=== PATIENT | male | born 1965 | race Caucasian/White ===

== ENCOUNTER 2019-08-02 06:00 | Outpatient (RCR) | payer MEDICAID, SELFPAY | END 2019-08-28 00:01 | LOC: APT 06:00 | PROVIDERS: Family Provider Family Medicine; Visit Provider Licensed Practical Nurse | DX: M54.9 Dorsalgia, unspecified (principal); G89.29 Other chronic pain | CPT/HCPCS: 97110; 97161 ==

== ENCOUNTER 2019-08-29 06:00 | Outpatient (RCR) | payer MEDICAID, SELFPAY | END 2019-09-28 23:59 | disposition home or self-care (01) | LOC: SPT 06:00 | PROVIDERS: Family Provider Family Medicine; PCP Family Medicine; Visit Provider Licensed Practical Nurse | DX: M54.9 Dorsalgia, unspecified (principal); G89.29 Other chronic pain ==

== ENCOUNTER → 2019-08-30 08:32 | Outpatient (BNVA) | payer MEDICAID, SELFPAY | PROVIDERS: Family Provider Family Medicine; PCP Family Medicine; Visit Provider Family Medicine | DX: K21.9 Gastro-esophageal reflux disease without esophagitis (principal); E11.9 Type 2 diabetes mellitus without complications; M54.5 Low back pain; G89.29 Other chronic pain; I48.11 Longstanding persistent atrial fibrillation; F41.9 Anxiety disorder, unspecified | CPT/HCPCS: 80048; 83036 ==

== ENCOUNTER → 2019-10-03 12:58 | Outpatient (BNVA) | payer MEDICAID, SELFPAY | PROVIDERS: Family Provider Family Medicine; PCP Family Medicine; Visit Provider Anesthesiology Pain Medicine | DX: G89.29 Other chronic pain (principal); M47.817 Spondylosis without myelopathy or radiculopathy, lumbosacral region; M99.83 Other biomechanical lesions of lumbar region; Z79.891 Long term (current) use of opiate analgesic | CPT/HCPCS: 99203; 99999 ==

== ENCOUNTER → 2020-06-04 11:24 | Outpatient (BNVA) | payer MEDICAID, SELFPAY | PROVIDERS: Family Provider Family Medicine; PCP Family Medicine; Visit Provider Nurse Practitioner | DX: S89.92XA Unspecified injury of left lower leg, initial encounter (principal); W19.XXXA Unspecified fall, initial encounter; M25.562 Pain in left knee; M79.662 Pain in left lower leg | CPT/HCPCS: 73562; 73590 ==

== ENCOUNTER → 2020-06-16 10:27 | Outpatient (BNVA) | payer MEDICAID, SELFPAY | PROVIDERS: Family Provider Family Medicine; PCP Family Medicine; Visit Provider Family Medicine | DX: M54.5 Low back pain (principal); E11.9 Type 2 diabetes mellitus without complications; S86.912D Strain of unspecified muscle(s) and tendon(s) at lower leg level, left leg, subsequent encounter; G89.29 Other chronic pain; E66.01 Morbid (severe) obesity due to excess calories; Z68.41 Body mass index [BMI] 40.0-44.9, adult; F17.211 Nicotine dependence, cigarettes, in remission | CPT/HCPCS: 36416; 82962 ==

== ENCOUNTER → 2020-10-20 14:17 | Outpatient (BNVA) | payer MEDICAID, SELFPAY | PROVIDERS: Family Provider Family Medicine; PCP Family Medicine; Visit Provider Family Medicine | DX: E11.9 Type 2 diabetes mellitus without complications (principal); M51.16 Intervertebral disc disorders with radiculopathy, lumbar region; F32.9 Major depressive disorder, single episode, unspecified; M99.83 Other biomechanical lesions of lumbar region; Z68.41 Body mass index [BMI] 40.0-44.9, adult; F17.211 Nicotine dependence, cigarettes, in remission | CPT/HCPCS: 80053; 83036; 85025 ==

== ENCOUNTER → 2020-10-29 11:33 | Outpatient (BNVA) | payer MEDICAID, SELFPAY | PROVIDERS: Family Provider Family Medicine; PCP Family Medicine; Visit Provider Family Medicine | DX: R89.9 Unspecified abnormal finding in specimens from other organs, systems and tissues (principal); E11.9 Type 2 diabetes mellitus without complications | CPT/HCPCS: 80053 ==

== ENCOUNTER → 2021-02-16 15:24 | Outpatient (BNVA) | payer MEDICAID, SELFPAY | PROVIDERS: Family Provider Family Medicine; PCP Family Medicine; Visit Provider Family Medicine | DX: M54.5 Low back pain (principal); E11.9 Type 2 diabetes mellitus without complications; I48.20 Chronic atrial fibrillation, unspecified; M51.16 Intervertebral disc disorders with radiculopathy, lumbar region; R07.9 Chest pain, unspecified | CPT/HCPCS: 80053; 83036; 85025 ==

== ENCOUNTER 2021-05-03 12:41 | Emergency (ER) | payer MEDICAID, SELFPAY ==
[2021-05-03] VITALS (33 sets, daily range): BP systolic 82–222; BP diastolic 48–114; PULSE 106–168; RESP 18–40; TEMP 36.9; O2SAT 92–100; BMI 47.5
--- NOTE | 2021-05-03 12:49 | XRR_ITS ---
PROCEDURE INFORMATION: Exam: XR Chest Exam date and time: 05/03/2021 12:49 PM Age: 55 years old Clinical indication: Shortness of breath; Additional info: Rule out infection TECHNIQUE: Imaging protocol: XR of the chest. Views: 1 view. COMPARISON: MRI Thoracic Spine w/o* [id number] 06/20/2019 2:23 PM FINDINGS: Lungs: Low lung volumes seen. Parenchymal densities with interstitial congestion left lower lobe possible pneumonia. The left upper lobe and right lung are clear . In No consolidation. Pleural spaces: Unremarkable. No pleural effusion. No pneumothorax. Heart/Mediastinum: Unremarkable. No cardiomegaly. Bones/joints: Unremarkable. XR/XR chest 1V portable [id number] IMPRESSION: 1. Left lower lobe pneumonia, and interstitial congestion 2. Low lung volumes 3. Low lung volumes
--- NOTE | 2021-05-03 12:49 | ECG_ITS ---
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1965 Requested By: Eileen Andrade Order Number: [id number] Reading MD: MARIO ROSENBERG Measurements Intervals [place] Rate: 130 P: MD: QRS: -67 QRSD: 93 T: 71 QT: 356 QTc: 525 Interpretive Statements ATRIAL FIBRILLATION WITH RAPID VENTRICULAR RESPONSE LEFT ANTERIOR FASCICULAR BLOCK [QRS AXIS <= -45, QR IN I, RS IN II] POSSIBLE ANTERIOR MYOCARDIAL INFARCTION , PROBABLY OLD [30 ms Q WAVE IN V3/V4, OR R < 0.2 mV IN V4] No previous ECG available for comparison Electronically Signed On 05-03-2021 15:02:17 CDT by MARIO ROSENBERG [id number]
--- NOTE | 2021-05-03 12:59 | ED_ITS ---
HPI - COVID General: Chief Complaint: COVID symptoms Stated Complaint: RESP DISTRESS Time Seen by Provider: 05/03/21 12:49 Triage information: Has fever, cough or shortness of breath . Exposure to COVID + person last 14 days COVID Results: No Data to Display [facility] ED PFSH: Medical History Chronic atrial fibrillation Chronic back pain Diabetes Morbid (severe) obesity due to excess calories Strain of knee and leg, left Family History Unknown Depression Diabetes Father Hypertension Heart disease Social History Smoking and tobacco status: former smoker Alcohol intake: current Alcohol intake frequency: holidays/special occasions only Alcohol type: wine Household members: spouse Marital status: Current occupational status: disabled History of recent travel: No Course Vital Signs: Vital signs: Vital Signs Temperature 98.4 F 05/03/21 12:47 Pulse Rate 168 H 05/03/21 12:47 Respiratory Rate 40 H 05/03/21 12:47 Blood Pressure 222/114 05/03/21 12:47 Pulse Oximetry 93 05/03/21 12:47 MDM - COVID Lab Data: Labs: Lab Results 05/03/21 Range/Units 12:55 Specimen Type Arterial Sample Site Heel, right ABG pH 7.55 H (7.35-7.45) ABG pCO2 27.0 L (35-45) mmHg ABG pO2 49.9 L (80.0-100.0) mmH g ABG HCO3 23.4 (22-26) mmol/L ABG Base Excess 2.4 H (-2.0-2.0) mmol/ L Wilfrid Test Pos Hematocrit 48.4 (42-52) % O2 Delivery Device Nc O2 Liters/Min 7.0 % [employer] 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 [place] COVID Results: No Data to Display Discharge Plan Discharge Prescriptions: No Action albuterol sulfate 2.5 mg /3 mL (0.083 %) solution for nebulization 2.5 mg INHALATION Q6H RF: 0 ammonium lactate 12 % cream 1 applic TOPICAL BID RF: 0 albuterol sulfate [ProAir HFA] 90 mcg/actuation HFA aerosol inhaler 3 puff INHALATION Q4H Qty: 16 RF: 5 citalopram 40 mg tablet 40 mg PO DAILY Qty: 90 RF: 1 nitroglycerin 0.4 mg tablet, sublingual 0.4 mg sublingual Q5M PRN (Reason: chest pain) Qty: 30 RF: 2 metoprolol tartrate 50 mg tablet 50 mg PO BID Qty: 180 RF: 1 cyclobenzaprine 10 mg tablet 10 mg PO .q hs Qty: 30 RF: 1 Xarelto 20 mg tablet 20 mg PO ONCE Qty: 30 RF: 5 zolpidem [Ambien] 10 mg tablet 10 mg PO ONCE 30 Days Qty: 30 RF: 5 famotidine 20 mg tablet See Rx Instructions .ROUTE .COMPLEX Qty: 60 RF: 5 meloxicam 15 mg tablet 15 mg PO DAILY 30 Days Qty: 30 RF: 0 hydrocodone-acetaminophen 10-325 mg tablet 1 tab PO Q8H PRN (Reason: pain) 30 Days Qty: 66 RF: 0 lisinopril 20 mg tablet 20 mg PO ONCE Qty: 90 RF: 1 metformin 500 mg tablet 500 mg PO BID Qty: 180 RF: 1 Coding Level of Care Code ED Device Processing Engineer for Carmella Mann
[2021-05-03] MEDS: metoprolol tartrate 1 mg/1 mL SDV 5 mL 5 MG IVP ×2 (13:05→13:10)
[2021-05-03] MEDS: nitroglycerin drip 50 MG/250 ML PREMIX 6 MG IV (13:06)
[2021-05-03 13:08] LABS: ABG PH Result 7.55 (7.35-7.45); Arterial Blood Gas Hematocrit 48.4 % (42-52); Base Excess ABG 2.4 mmol/L (-2.0-2.0); Blood Gas Allen Test Pos; Blood Gas Operator Identificat MONRO; Blood Gas Sample Site Heel, right; Blood Gas Sample Type Arterial; HCO3 ABG 23.4 mmol/L (22-26); Oxygen Device NC; PO2 ABG 49.9 mmHg (80.0-100.0)
[2021-05-03] MEDS: sodium chloride 0.9% 500 ML 999 ML IV (13:14)
--- NOTE | 2021-05-03 13:16 | ED_ITS ---
HPI - General Adult General: Chief complaint: COVID symptoms Stated complaint: RESP DISTRESS Time Seen by Provider: 05/03/21 12:49 History of Present Illness: HPI narrative: Patient is a 55-year-old male with a history of atrial fibrillation, hypertension, diabetes, CHF, whose is hospitalized currently for Covid presenting to the emergency room with 4 weeks of worsening malaise, fatigue, shortness of breath, cough, not feeling well. Patient was at home when his family called EMS. Patient was noted to be satting 80% on 10 L nasal cannula en route. Patient was also noted to be atrial fibrillation with RVR to the 150s. Blood pressure was was elevated to 212/120. On arrival, patient reports cough shortness of breath fatigue and malaise. Patient is AAO x 2 and occasionally responding to questions on arrival. Onset:4 weeks ago Duration:4 weeks Location:home Severity:severe Review of Systems Narrative: Constitutional: No fever, no chills. +generalized weakness HEENT: No vision changes CV: No chest pain, no palpitations PULM: +cough, +dyspnea. GI: Mid-epigastric abdominal pain, +N/-V/+D. : No dysuria MSKEL: No muscle pain SKIN: No new rashes, no lesions. NEURO: No headache, no focal weakness +confusion. HEME: No visible bruises PSYCH: Normal mood [facility] ED PFSH: Medical History Chronic atrial fibrillation Chronic back pain Diabetes Morbid (severe) obesity due to excess calories Strain of knee and leg, left Family History Unknown Depression Diabetes Father Hypertension Heart disease Social History Smoking and tobacco status: former smoker Alcohol intake: current Alcohol intake frequency: holidays/special occasions only Alcohol type: wine Household members: spouse Marital status: Current occupational status: disabled History of recent travel: No Physical Exam Narrative: EXAM NARRATIVE: Head: Atraumatic Eyes: PERRL, conjunctiva without injection ENT: Dry membrane moist NECK: Supple, ROM intact LUNGS: coarse breath sounds, increased work of breathing, +mild wheezing b/l HEART: Irregularly iregular tachycardia ABDOMEN: Soft, nontender in all quadrants EXTREMITY: Normal ROM SKIN: No rash or erythema NEURO: Awake and alert, no focal motor deficits PSYCH: Normal mood and affect Procedures Central Line Placement Left Femoral: Time Out Performed: Yes Patient Placed on Monitor/Pulse Ox: Yes MD Prep: mask Central Line Prep: Povidone-Iodine 1% Local Anesthetic: lidocaine 1% Amount of anesthesia used (mL): 10 Ultrasound Used for Placement: Yes Central Line Lumen Inserted: triple Post Procedure: sutured in place, good blood return, all ports aspirated, flushed, capped and sterile dressing applied Post Procedure X-Ray: tip of catheter in good position Patient Tolerated Procedure: well Complications: none Chest Tube Chest Tube 1: Chest Tube Location: right and mid axillary line Size of Tube (cm): 32 Chest Tube Prep: Yes betadine prep and sterile drapes applied Incision Made With: #11 blade Post Procedure: sutured to skin and sterile dressing applied Tube Drainage: none Post Procedure CXR?: Yes Patient Tolerated Procedure: Yes (under sedation) Complications: pain Intubation Time out performed: Yes sedative: Etomidate Mg Given: 50 paralytic: Succinylcholine Mg Given: 200 Assist Device Used: other ET Tube Size: 7.5 ET Tube Uncuffed: No Tube Secured Depth (cm): 21 Tube Secured Location: lips Tube Placement Confirmation: visualized tube passing through cords Patient Tolerated Procedure: well Intubation Complications: none Course Vital Signs: Vital signs: Vital Signs Temperature 98.4 F 05/03/21 12:47 Pulse Rate 140 H 05/03/21 18:40 Respiratory Rate 20 H 05/03/21 18:40 Blood Pressure 169/113 05/03/21 18:25 Pulse Oximetry 96 05/03/21 18:40 MDM - General Adult MDM Narrative: Medical decision making narrative: Patient is a 55-year-old male with a history of diabetes, hypertension, CHF w/ positive covid exposure presenting to the emergency room by EMS for altered mental status, hypoxemia, atrial fibrillation with RVR, and hypertensive emergency. On arrival, patient has GCS of 14, is mildly confused but following commands. Decision was made to treat patient as CHF exacerbation versus moderate to severe Covid. Because patient was able to respond to command initially, patient was placed on BiPAP. However shortly after being placed on BiPAP patient became severely agitated: removing his mask, and ripping out his IVs. Patient request to go to the bathroom on multiple occasions. After a period of observation, he was noted to have continued increased work of breathing shortness of breath and deteriorating mental status, decision was made to intubate patient for airway protection and for worsening hypoxemic respiratory failure. Initial chest x-ray which was performed prior to patient placing on BiPAP showed diffuse interstitial findings without pneumonthorax. Post intubation, patient was found to have a right-sided moderate pneumothorax. No BVM was was performed during intubation. I suspected pneumothorax secondary to BiPAP. Post intubation, a right-sided 32 Stateless catheter was placed with reinspection of the right lung. Post intubation is noticeable for soft blood pressure and persistent atrial fibrillation with RVR. Patient received 1 L of fluid, vancomycin, and cefepime. Patient has a lactic acid of 4.5, white count within normal limit, T bili of 6, proBNP of 2000, troponin within normal limit. He received 2 doses of metoprolol for atrial fibrillation with improvement heart rates from 160s to 120s. Intubation,. A central line was placed in the right femoral. CT brain, CTA chest and CT abdomen not show any focal findings. Patient was noted to have dark stool, given protonix 80mg. Hemoglobin of 16. My nurse attempted to place a stoll on multiple occasions (16Fr and coude) but patient has significant hematuria. A RUG study was performed without any signs of trauma. Patient was noted to have a windy uretheter. Case was discussed with our urologist Dr. Smith who placed a stoll. Patient continues to HDS. Repeat gas appears to be improving. Case discussed with Dr. Soler from [facility] who agrees with transfer. Disposition: Transfer to outside ED. Lab Data: Labs: Lab Results 05/03/21 05/03/21 05/03/21 Range/Units 12:55 13:00 13:00 WBC 9.1 (4.0-10.0) 10^3/ uL RBC 5.44 H (4.1-5.3) 10^6/u L Hgb 16.1 (11.7-16.6) g/dL Hct 44.8 (42.0-52.0) % MCV 82.4 (80-94) fl MCH 29.6 (28.0-34.0) pg MCHC 35.9 (30.0-36.0) g/dL RDW 14.1 (12.1-15.1) % Plt Count 232 (130-400) 10^3/c mm MPV 10.5 H (7.4-10.4) fL Neut % (Auto) 78.5 % Lymph % (Auto) 12.3 % Cheyenne % (Auto) 8.2 % Eos % (Auto) 0.0 % Baso % (Auto) 0.1 % Neut # (Auto) 7.17 (1.8-7.7) 10^3/u L Lymph # (Auto) 1.1 (0.8-4.8) 10^3/u L [place] # (Auto) 0.8 (0.2-0.9) 10^3/u L Eos # (Auto) 0.0 (0.0-0.8) 10^3/u L Baso # (Auto) 0.0 (0.0-0.1) 10^3/u L Nucleated RBC % (a uto) 0 % Nucleated RBCs # 0.0 /100WBC PT 21.40 H (12.1-14.9) SECO NDS INR 1.81 H (0.8-1.2) APTT 31.5 (23.9-36.7) SECO NDS D-Dimer 1.29 H (0-0.59) ug/mIFE U Specimen Type Arterial Sample Site Heel, right ABG pH 7.55 H (7.35-7.45) ABG pCO2 27.0 L (35-45) mmHg ABG pO2 49.9 L (80.0-100.0) mmH g ABG HCO3 23.4 (22-26) mmol/L ABG Base Excess 2.4 H (-2.0-2.0) mmol/ L Wilfrid Test Pos Hematocrit 48.4 (42-52) % O2 Delivery Device Nc O2 Liters/Min 7.0 % FiO2 % Tidal Volume PEEP cmH20 Bicycle Messenger ID Monro Sodium (136-145) mmol/L Potassium (3.5-5.1) mmol/L Chloride (98-107) mmol/L Carbon Dioxide (22-29) mmol/L Anion Gap (5-19) BUN (6-20) mg/dL Creatinine (0.7-1.2) mg/dL GFR Calculation (90-130) mL/min Glucose (65-115) mg/dL Calculated Osmolal ity (285-295) mOsm/k g Lactate (0.5-2.2) mmol/L Calcium (8.5-10.5) mg/dL Total Bilirubin (0.15-1.2) mg/dL AST (0-40) U/L ALT (0-41) U/L Alkaline Phosphata se (40-130) IU/L Troponin T Baselin e (0-15) ng/L NT-Pro-B Natriuret Pep (0-125) pg/mL Total Protein (6.6-8.7) g/dL Albumin (3.5-5.2) g/dL Globulin (1.3-4.6) g/dL Lipase (13-60) U/L SARS-CoV-2 Ag (Rap id) (Negative) 05/03/21 05/03/21 05/03/21 Range/Units 13:00 13:00 13:00 WBC (4.0-10.0) 10^3/ uL RBC (4.1-5.3) 10^6/u L Hgb (11.7-16.6) g/dL Hct (42.0-52.0) % MCV (80-94) fl MCH (28.0-34.0) pg MCHC (30.0-36.0) g/dL RDW (12.1-15.1) % Plt Count (130-400) 10^3/c mm MPV (7.4-10.4) fL Neut % (Auto) % Lymph % (Auto) % [place]yenne % (Auto) % Eos % (Auto) % Baso % (Auto) % Neut # (Auto) (1.8-7.7) 10^3/u L Lymph # (Auto) (0.8-4.8) 10^3/u L [place] # (Auto) (0.2-0.9) 10^3/u L Eos # (Auto) (0.0-0.8) 10^3/u L Baso # (Auto) (0.0-0.1) 10^3/u L Nucleated RBC % (a uto) % Nucleated RBCs # /100WBC PT (12.1-14.9) SECO NDS INR (0.8-1.2) APTT (23.9-36.7) SECO NDS D-Dimer (0-0.59) ug/mIFE U Specimen Type Sample Site ABG pH (7.35-7.45) ABG pCO2 (35-45) mmHg ABG pO2 (80.0-100.0) mmH g ABG HCO3 (22-26) mmol/L ABG Base Excess (-2.0-2.0) mmol/ L Wilfrid Test Hematocrit (42-52) % O2 Delivery Device O2 Liters/Min % FiO2 % Tidal Volume PEEP cmH20 Bicycle Messenger ID Sodium 131 L (136-145) mmol/L Potassium 2.8 L* (3.5-5.1) mmol/L Chloride 87 L (98-107) mmol/L Carbon Dioxide 23 (22-29) mmol/L Anion Gap 23.8 H (5-19) BUN 10 (6-20) mg/dL Creatinine 0.6 L (0.7-1.2) mg/dL GFR Calculation 139.9 H (90-130) mL/min Glucose 141 H (65-115) mg/dL Calculated Osmolal ity 273 L (285-295) mOsm/k g Lactate 4.5 H* (0.5-2.2) mmol/L Calcium 8.6 (8.5-10.5) mg/dL Total Bilirubin 6.2 H (0.15-1.2) mg/dL AST 116 H (0-40) U/L ALT 25 (0-41) U/L Alkaline Phosphata se 77 (40-130) IU/L Troponin T Baselin e 14 (0-15) ng/L NT-Pro-B Natriuret Pep 2166 H (0-125) pg/mL Total Protein 6.8 (6.6-8.7) g/dL Albumin 3.7 (3.5-5.2) g/dL Globulin 3.1 (1.3-4.6) g/dL Lipase 56 (13-60) U/L SARS-CoV-2 Ag (Rap id) (Negative) 05/03/21 05/03/21 Range/Units 15:30 17:15 WBC (4.0-10.0) 10^3/ uL RBC (4.1-5.3) 10^6/u L Hgb (11.7-16.6) g/dL Hct (42.0-52.0) % MCV (80-94) fl MCH (28.0-34.0) pg MCHC (30.0-36.0) g/dL RDW (12.1-15.1) % Plt Count (130-400) 10^3/c mm MPV (7.4-10.4) fL Neut % (Auto) % Lymph % (Auto) % [place] % (Auto) % Eos % (Auto) % Baso % (Auto) % Neut # (Auto) (1.8-7.7) 10^3/u L Lymph # (Auto) (0.8-4.8) 10^3/u L [place] # (Auto) (0.2-0.9) 10^3/u L Eos # (Auto) (0.0-0.8) 10^3/u L Baso # (Auto) (0.0-0.1) 10^3/u L Nucleated RBC % (a uto) % Nucleated RBCs # /100WBC PT (12.1-14.9) SECO NDS INR (0.8-1.2) APTT (23.9-36.7) SECO NDS D-Dimer (0-0.59) ug/mIFE U Specimen Type Arterial Sample Site Radial, left ABG pH 7.39 (7.35-7.45) ABG pCO2 38.8 (35-45) mmHg ABG pO2 261.0 H (80.0-100.0) mmH g ABG HCO3 23.2 (22-26) mmol/L ABG Base Excess -1.6 (-2.0-2.0) mmol/ L Wilfrid Test Pos Hematocrit 38.0 L (42-52) % O2 Delivery Device Vent O2 Liters/Min % FiO2 100.0 % Tidal Volume 0.50 PEEP 5.0 cmH20 Bicycle Messenger ID Monro Sodium (136-145) mmol/L Potassium (3.5-5.1) mmol/L Chloride (98-107) mmol/L Carbon Dioxide (22-29) mmol/L Anion Gap (5-19) BUN (6-20) mg/dL Creatinine (0.7-1.2) mg/dL GFR Calculation (90-130) mL/min Glucose (65-115) mg/dL Calculated Osmolal ity (285-295) mOsm/k g Lactate (0.5-2.2) mmol/L Calcium (8.5-10.5) mg/dL Total Bilirubin (0.15-1.2) mg/dL AST (0-40) U/L ALT (0-41) U/L Alkaline Phosphata se (40-130) IU/L Troponin T Baselin e (0-15) ng/L NT-Pro-B Natriuret Pep (0-125) pg/mL Total Protein (6.6-8.7) g/dL Albumin (3.5-5.2) g/dL Globulin (1.3-4.6) g/dL Lipase (13-60) U/L SARS-CoV-2 Ag (Rap id) Negative (Negative) Imaging Data^: Other Imaging: Radiologist's impression: [address] [id number] ReportSigned Patient: Jessica Leone #: [id number]: 1965Acct#:[id number]/Sex: 55 / MADM Date: 05/03/21Loc: ERRoom/Bed:Attending Dr: Ordering Provider/Ordering MD: Eileen Andrade MD Date of Service: 05/03/21 Procedure(s): XR chest 1V portable [id number] Accession Number(s): [id number] Report Number: [id number] PROCEDURE INFORMATION: Exam: XR Chest Exam date and time: 05/03/2021 12:49 PM Age: 55 years old Clinical indication: Shortness of breath; Additional info: Rule out infection TECHNIQUE: Imaging protocol: XR of the chest. Views: 1 view. COMPARISON: MRI Thoracic Spine w/o* [id number] 06/20/2019 2:23 PM FINDINGS: Lungs: Low lung volumes seen. Parenchymal densities with interstitial congestion left lower lobe possible pneumonia. The left upper lobe and right lung are clear . In No consolidation. Pleural spaces: Unremarkable. No pleural effusion. No pneumothorax. Heart/Mediastinum: Unremarkable. No cardiomegaly. Bones/joints: Unremarkable. XR/XR chest 1V portable [id number] IMPRESSION: 1. Left lower lobe pneumonia, and interstitial congestion 2. Low lung volumes 3. Low lung volumes Dictated By:Sepideh Guevaraigned By:Kalyynn Guevara Date/Time:05/03/21 1437DD/ [address] [address]MLml ReportSigned with Addenda Patient: Jessica Leone #: [id number]: 1965Acct#:[id number]/Sex: 55 / MADM Date: 05/03/21Loc: ERRoom/Bed:Attending Dr: Ordering Provider/Ordering MD: Eileen Andrade MD Date of Service: 05/03/21 Procedure(s): XR chest 1V portable [id number] Accession Number(s): [id number] Report Number: [id number] ADDENDUM XR/XR chest 1V portable [id number] Findings were discussed with EILEEN ANDRADE at 05/03/2021 4:42 PM CDT. Addendum Dictated By: Marino Guevara Signed By: Kaylynn Guevara Date/Time:05/03/21 1643Addendum Cosigned By: PROCEDURE INFORMATION: Exam: XR Chest Exam date and time: 05/03/2021 3:01 PM Age: 55 years old Clinical indication: Device placement; Ett placement (vent status); Patient HX: Post intubation; Additional info: Post-intubation TECHNIQUE: Imaging protocol: XR of the chest. Views: 1 view. COMPARISON: CR (CHEST, ) 05/03/2021 1:15 PM FINDINGS: Tubes, catheters and devices: Endotracheal tube 8.6 cm above the valentine. NG tube extends into the stomach Lungs: Left lower lobe interstitial congestion is seen. No consolidation. Pleural spaces: Unremarkable. No pleural effusion. There is a large right lung pneumothorax. Heart/Mediastinum: Unremarkable. No cardiomegaly. Bones/joints: Unremarkable. XR/XR chest 1V portable [id number] IMPRESSION: 1. Large right lung pneumothorax new since prior 2. Left lower lobe interstitial congestion. 3. Endotracheal tube above the valentine 4. NG tube is in the stomach Dictated By:Kaylynn Guevara By:Kaylynn Guevara Date/Time:05/03/21 1624DD/ [address] [address]SEoq ReportSigned Patient: Jessica Leone #: [id number]: 1965Acct#:[id number]/Sex: 55 / MADM Date: 05/03/21Loc: ERRoom/Bed:Attending Dr: Ordering Provider/Ordering MD: Eileen Andrade MD Date of Service: 05/03/21 Procedure(s): XR chest 1V portable [id number] Accession Number(s): [id number] Report Number: [id number] PROCEDURE INFORMATION: Exam: XR Chest Exam date and time: 05/03/2021 4:23 PM Age: 55 years old Clinical indication: Device placement; Other: Chest tube; Additional info: Confirm chest tube placement TECHNIQUE: Imaging protocol: XR of the chest. Views: 1 view. COMPARISON: CR (CHEST, ) 05/03/2021 3:26 PM FINDINGS: Tubes, catheters and devices: A chest tube is present in the right lower lobe; Endotracheal tube 8.6 cm above the valentine. NG tube extends into the stomach Lungs: Parenchymal density left perihilar region and left lower lobe. Possible pneumonia; A right lower lobe parenchymal density is seen which may reflect atelectasis Pleural spaces: No pleural effusion. There has been partial re-expansion of right lung pneumothorax. Heart/Mediastinum: Unremarkable. No cardiomegaly. Bones/joints: Unremarkable. XR/XR chest 1V portable [id number] IMPRESSION: 1. Partial re-expansion of right lung pneumothorax 2. Right lower lobe chest tube has been placed 3. Endotracheal tube is above the valentine 4. NG tube is in the stomach 5. Left perihilar and lower lobe parenchymal densities possible pneumonia 6. Right lower lobe atelectasis Dictated By:Kaylynn Guevara By:Kaylynn Guevara Date/Time:05/03/21 1651DD/ 1650 [facility] [facility] [address], [place] [address]ZWgs ReportSigned Patient: Jesisca Leone #: [id number]: 1965Acct#:[id number]/Sex: 55 / MADM Date: 05/03/21Loc: ERRoom/Bed:Attending Dr: Ordering Provider/Ordering MD: Eileen Andrade MD Date of Service: 05/03/21 Procedure(s): XR pelvis 1-2V* [id number] Accession Number(s): [id number] Report Number: [id number] PROCEDURE INFORMATION: Exam: XR Pelvis Exam date and time: 05/03/2021 4:53 PM Age: 55 years old Clinical indication: Device placement; Patient HX: Retro cystogram unable to place catheter; Additional info: Intubated PT TECHNIQUE: Imaging protocol: XR pelvis. Views: 1 view. COMPARISON: MRI Lumbar Spine w/o [id number] 06/04/2019 1:19 PM FINDINGS: Bones/joints: Unremarkable. No acute fracture. Soft tissues: Unremarkable. After retrograde injection of contrast through the urethra a column of liquid contrast is present extending to the pubic symphysis. There are no strictures or filling defects visible. Contrast does not flow into the urinary bladder XR/XR pelvis 1-2V* [id number] IMPRESSION: 1. Retrograde injection of contrast through the urethra does not show evidence of strictures or filling defects within the urethra. 2. Contrast does not flow into the urinary bladder Dictated By:Kaylynn Guevara By:Kaylynn Guevara Date/Time:05/03/21 1728DD/D 1727 [facility] [facility] [address], [place] [address]CD Scan ReportSigned Patient: Jessica Leone #: [id number]: 1965Acct#:[id number]/Sex: 55 / MADM Date: 05/03/21Loc: ERRoom/Bed:Attending Dr: Ordering Provider/Ordering MD: Eileen Andrade MD Date of Service: 09/05/21 Procedure(s): CT angio chest w abd pel w con Accession Number(s): [id number] Report Number: [id number] PROCEDURE INFORMATION: Exam: CTA Chest With Contrast Exam date and time: 05/03/2021 3:06 PM Age: 55 years old Clinical indication: Abdominal tenderness; Shortness of breath; Patient HX: Worsening covid symptoms x 4 wks; Additional info: Rule out pe, patient also have gi bleeding. Known pneumothorax. TECHNIQUE: Imaging protocol: Computed tomographic angiography of the chest with contrast. 3D rendering (Not supervised by radiologist): MIP and/or 3D reconstructed images were created by the technologist. Radiation optimization: All CT scans at this facility use at least one of these dose optimization techniques: automated exposure control; mA and/or kV adjustment per patient size (includes targeted exams where dose is matched to clinical indication); or iterative reconstruction. Contrast material: OMNI 350; Contrast volume: 95 ml; Contrast route: INTRAVENOUS (IV); COMPARISON: CR (CHEST, ) 05/03/2021 4:36 PM and 15:29. RADIATION DOSE METRICS: Total DLP (mGy-cm): 2200.73 FINDINGS: Tubes, catheters and devices: Distal aspect of the G-tube is positioned 5.6 cm superior to the valentine. There is a G-tube with the distal tip in the stomach body. There is air in soft tissues of the right hemithorax inferior to the chest tube placement. Pulmonary arteries: Normal. No pulmonary emboli. Aorta: Unremarkable. No aortic aneurysm. No aortic dissection. Lungs: Multifocal patchy bilateral pulmonary infiltrates primarily distributed peripherally. Pleural spaces: Small right pneumothorax. This has decreased in size when compared to the radiograph dated 05/03/2021 at time 15:29. Distal aspect of the right chest tube is positioned in the right lower lobe. Heart: Mild cardiomegaly. Lymph nodes: Unremarkable. No enlarged lymph nodes. Bones/joints: Unremarkable. No acute fracture. Soft tissues: Unremarkable. IMPRESSION: 1. Small right pneumothorax. Distal aspect of the right chest tube is positioned in the right lower lobe. 2. Multifocal patchy bilateral pulmonary infiltrates primarily distributed peripherally.Commonly reported imaging features of COVID-19 pneumonia are present. Other processes such as influenza pneumonia and organizing pneumonia, as can be seen with drug toxicity and connective tissue disease, can cause a similar imaging pattern. (Reference: Andrea) REFERENCES: josef Uriarte al., Radiological Society of [place] Expert Consensus Statement on Reporting Chest CT Findings Related to COVID-19. Endorsed by the Society of Thoracic Radiology, the [place] [employer], and RSNA. Published November 21, 2019. PROCEDURE INFORMATION: Exam: CT Abdomen And Pelvis With Contrast Exam date and time: 05/03/2021 3:06 PM Age: 55 years old Clinical indication: Abdominal tenderness; Shortness of breath; Patient HX: Worsening covid symptoms x 4 wks; Additional info: Rule out pe, patient also have gi bleeding TECHNIQUE: Imaging protocol: Computed tomography of the abdomen and pelvis with contrast. Radiation optimization: All CT scans at this facility use at least one of these dose optimization techniques: automated exposure control; mA and/or kV adjustment per patient size (includes targeted exams where dose is matched to clinical indication); or iterative reconstruction. Contrast material: OMNI 350; Contrast volume: 95 ml; Contrast route: INTRAVENOUS (IV); COMPARISON: CR (CHEST, ) 05/03/2021 4:36 PM RADIATION DOSE METRICS: Total DLP (mGy-cm): 2200.73 FINDINGS: Lungs: Please see the CT scan of the thorax for description of the lung bases. Liver: Lobulated liver consistent with cirrhosis. Gallbladder and bile ducts: The gallbladder has been removed. Pancreas: Normal. No ductal dilation. Spleen: The spleen is enlarged measuring 15.7 cm. Adrenal glands: Normal. No mass. Kidneys and ureters: Normal. No hydronephrosis. Stomach and bowel: There is diverticulosis of the colon without evidence of diverticulitis. Appendix: No evidence of appendicitis. Intraperitoneal space: Unremarkable. No free air. No significant fluid collection. Vasculature: Unremarkable. No abdominal aortic aneurysm. Lymph nodes: Unremarkable. No enlarged lymph nodes. Urinary bladder: Unremarkable as visualized. Reproductive: Unremarkable as visualized. Bones/joints: Unremarkable. No acute fracture. Soft tissues: Unremarkable. CT/CT angio chest w abd pel w con IMPRESSION: Cirrhotic liver with associated splenomegaly. Radiation Dose CTDIVOL = (mGy): DLP = 2200.73~2200.73 (mGy-cm) Dictated By:Digna Sousa MDSigned By:[place] Manish MDSigned Date/Time:05/03/21 1843DD/ [address] [id number] Scan ReportSigned Patient: Jessica Leone #: [id number]: 1965Acct#:[id number]/Sex: 55 / MADM Date: 05/03/21Loc: ERRoom/Bed:Attending Dr: Ordering Provider/Ordering MD: Eileen Andrade MD Date of Service: 05/03/21 Procedure(s): CT head wo con* [id number] Accession Number(s): [id number] Report Number: [id number] PROCEDURE INFORMATION: Exam: CT Head Without Contrast Exam date and time: 05/03/2021 3:07 PM Age: 55 years old Clinical indication: Coma or unconsciousness; Patient HX: Resp distress -sedated and intubated; Additional info: AMS TECHNIQUE: Imaging protocol: Computed tomography of the head without contrast. Radiation optimization: All CT scans at this facility use at least one of these dose optimization techniques: automated exposure control; mA and/or kV adjustment per patient size (includes targeted exams where dose is matched to clinical indication); or iterative reconstruction. COMPARISON: No relevant prior studies available. RADIATION DOSE METRICS: Total DLP (mGy-cm): 1056.82 FINDINGS: Brain: Prominent cortical sulci more pronounced than expected for age. No hemorrhage. Unremarkable white matter. No mass effect. Cerebral ventricles: Moderate ventriculomegaly. These findings are more pronounced than expected for age Paranasal sinuses: Visualized sinuses are filled with mucus specifically the frontal sinuses the ethmoid sinuses, the sphenoid sinus, and most of the frontal sinuses. These findings are consistent with pansinusitis and likely represent chronic disease. Mastoid air cells: Visualized mastoid air cells are well aerated. Bones/joints: Unremarkable. No acute fracture. Soft tissues: Unremarkable. CT/CT head wo con* [id number] IMPRESSION: No acute intracranial abnormality. Pansinusitis Cerebral atrophy and ventriculomegaly more than expected for age Radiation Dose CTDIVOL = (mGy): DLP = 1056.82 (mGy-cm) Dictated By:Kaylynn Guevara By:Kaylynn Guevara Date/Time:05/03/211849DD/ 1849 Critical Care Time Critical Care Time: Critical Care Time: Yes Total Critical Care Time: 37 Attestation: Given the high probability of imminent or life threatening deteri oration of the patient?s condition without intervention, the patient was immediately assessed by myself and the nurse, and cardiac monitoring initiated. The patient was also placed on oxygen and continuous pulse oximetry initiated. During the course of the patient?s stay, I spent a considerable amount of time at the bedside performing serial re-evaluations of the patient?s hemodynamic and clinical status because of the recognized potential threat to life or limb in this condition. Clinical management of this patient involved high complexity decision making to assess, manipulate, and support vital organ system failure. I then had a chance to review all of the available laboratory and radiographic studies obtained today, and I also reviewed old records available to me at the time. Sequential vital signs were obtained. Critical care time noted below was time spent engaged in work directly related to the individual patient?s care, not including time performing procedures; however it does include time spent at the immediate bedside or elsewhere on the floor or unit. TOTAL CRITICAL CARE TIME ELAPSED: in excess of 30 minutes. 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
[2021-05-03 13:19] LABS: Basophils % 0.1 %; Hematocrit 44.8 % (42.0-52.0); Hemoglobin 16.1 g/dL (11.7-16.6); Lymphocytes # 1.1 10^3/uL (0.8-4.8); Lymphocytes % 12.3 %; Mean Corpuscular HGB Conc 35.9 g/dL (30.0-36.0); Mean Corpuscular Hemoglobin 29.6 pg (28.0-34.0); Mean Corpuscular Volume 82.4 fl (80-94); Mean Platelet Volume 10.5 fL (7.4-10.4); Monocytes # 0.8 10^3/uL (0.2-0.9); Monocytes % 8.2 %; Neutrophils # 7.17 10^3/uL (1.8-7.7); Neutrophils % 78.5 %; Nucleated Red Blood Cells % 0 %; Platelet Count 232 10^3/cmm (130-400); Red Blood Count 5.44 10^6/uL (4.1-5.3); Red Cell Distribution Width 14.1 % (12.1-15.1); White Blood Count 9.1 10^3/uL (4.0-10.0)
[2021-05-03 13:39] LABS: INR 1.81 (0.8-1.2)
[2021-05-03 13:40] LABS: Partial Thromboplastin Time 31.5 SECONDS (23.9-36.7)
[2021-05-03 13:42] LABS: D Dimer 1.29 ug/mIFEU (0-0.59)
[2021-05-03 13:52] LABS: Troponin(5th) Baseline 14 ng/L (0-15)
[2021-05-03] MEDS: LORazepam 2 mg/mL INJ 1 mL 1 MG IVP ×2 (13:56→14:43)
[2021-05-03 14:02] LABS: Alanine Aminotransferase 25 U/L (0-41); Albumin Level 3.7 g/dL (3.5-5.2); Alkaline Phosphatase 77 IU/L (40-130); Anion Gap 23.8 (5-19); Aspartate Amino Transferase 116 U/L (0-40); Blood Urea Nitrogen 10 mg/dL (6-20); Calcium 8.6 mg/dL (8.5-10.5); Carbon Dioxide 23 mmol/L (22-29); Chloride 87 mmol/L (98-107); Globulin 3.1 g/dL (1.3-4.6); Glomerular Filtration Rate 139.9 mL/min (90-130); Glucose 141 mg/dL (65-115); Lipase 56 U/L (13-60); NT Pro B Type Natriuretic Pept 2166 pg/mL (0-125); Osmolality Calculated 273 mOsm/kg (285-295); Sodium 131 mmol/L (136-145); Total Bilirubin 6.2 mg/dL (0.15-1.2); Total Protein 6.8 g/dL (6.6-8.7)
[2021-05-03] MEDS: haloperidol inj 5 mg/mL INJ 1 mL IM (14:07)
[2021-05-03] MEDS: succinylcholine 20 mg/mL SDV 10mL 200 MG IVP (14:55)
[2021-05-03 15:01] LABS: Lactate (Lactic Acid level) 4.5 mmol/L (0.5-2.2); Potassium 2.8 mmol/L (3.5-5.1)
--- NOTE | 2021-05-03 15:01 | XRR_ITS ---
PROCEDURE INFORMATION: Exam: XR Chest Exam date and time: 05/03/2021 3:01 PM Age: 55 years old Clinical indication: Device placement; Ett placement (vent status); Patient HX: Post intubation; Additional info: Post-intubation TECHNIQUE: Imaging protocol: XR of the chest. Views: 1 view. COMPARISON: CR (CHEST, ) 05/03/2021 1:15 PM FINDINGS: Tubes, catheters and devices: Endotracheal tube 8.6 cm above the valentine. NG tube extends into the stomach Lungs: Left lower lobe interstitial congestion is seen. No consolidation. Pleural spaces: Unremarkable. No pleural effusion. There is a large right lung pneumothorax. Heart/Mediastinum: Unremarkable. No cardiomegaly. Bones/joints: Unremarkable. XR/XR chest 1V portable [id number] IMPRESSION: 1. Large right lung pneumothorax new since prior 2. Left lower lobe interstitial congestion. 3. Endotracheal tube above the valentine 4. NG tube is in the stomach
--- NOTE | 2021-05-03 15:06 | CTR_ITS ---
PROCEDURE INFORMATION: Exam: CTA Chest With Contrast Exam date and time: 05/03/2021 3:06 PM Age: 55 years old Clinical indication: Abdominal tenderness; Shortness of breath; Patient HX: Worsening covid symptoms x 4 wks; Additional info: Rule out pe, patient also have gi bleeding. Known pneumothorax. TECHNIQUE: Imaging protocol: Computed tomographic angiography of the chest with contrast. 3D rendering (Not supervised by radiologist): MIP and/or 3D reconstructed images were created by the technologist. Radiation optimization: All CT scans at this facility use at least one of these dose optimization techniques: automated exposure control; mA and/or kV adjustment per patient size (includes targeted exams where dose is matched to clinical indication); or iterative reconstruction. Contrast material: OMNI 350; Contrast volume: 95 ml; Contrast route: INTRAVENOUS (IV); COMPARISON: CR (CHEST, ) 05/03/2021 4:36 PM and 15:29. RADIATION DOSE METRICS: Total DLP (mGy-cm): 2200.73 FINDINGS: Tubes, catheters and devices: Distal aspect of the G-tube is positioned 5.6 cm superior to the valentine. There is a G-tube with the distal tip in the stomach body. There is air in soft tissues of the right hemithorax inferior to the chest tube placement. Pulmonary arteries: Normal. No pulmonary emboli. Aorta: Unremarkable. No aortic aneurysm. No aortic dissection. Lungs: Multifocal patchy bilateral pulmonary infiltrates primarily distributed peripherally. Pleural spaces: Small right pneumothorax. This has decreased in size when compared to the radiograph dated 05/03/2021 at time 15:29. Distal aspect of the right chest tube is positioned in the right lower lobe. Heart: Mild cardiomegaly. Lymph nodes: Unremarkable. No enlarged lymph nodes. Bones/joints: Unremarkable. No acute fracture. Soft tissues: Unremarkable. IMPRESSION: 1. Small right pneumothorax. Distal aspect of the right chest tube is positioned in the right lower lobe. 2. Multifocal patchy bilateral pulmonary infiltrates primarily distributed peripherally.Commonly reported imaging features of COVID-19 pneumonia are present. Other processes such as influenza pneumonia and organizing pneumonia, as can be seen with drug toxicity and connective tissue disease, can cause a similar imaging pattern. (Reference: Andrea) REFERENCES: Andrea Allen et al., Radiological Society of [place] Expert Consensus Statement on Reporting Chest CT Findings Related to COVID-19. Endorsed by the Society of Thoracic Radiology, the [place] [employer], and RSNA. Published November 21, 2019. PROCEDURE INFORMATION: Exam: CT Abdomen And Pelvis With Contrast Exam date and time: 05/03/2021 3:06 PM Age: 55 years old Clinical indication: Abdominal tenderness; Shortness of breath; Patient HX: Worsening covid symptoms x 4 wks; Additional info: Rule out pe, patient also have gi bleeding TECHNIQUE: Imaging protocol: Computed tomography of the abdomen and pelvis with contrast. Radiation optimization: All CT scans at this facility use at least one of these dose optimization techniques: automated exposure control; mA and/or kV adjustment per patient size (includes targeted exams where dose is matched to clinical indication); or iterative reconstruction. Contrast material: OMNI 350; Contrast volume: 95 ml; Contrast route: INTRAVENOUS (IV); COMPARISON: CR (CHEST, ) 05/03/2021 4:36 PM RADIATION DOSE METRICS: Total DLP (mGy-cm): 2200.73 FINDINGS: Lungs: Please see the CT scan of the thorax for description of the lung bases. Liver: Lobulated liver consistent with cirrhosis. Gallbladder and bile ducts: The gallbladder has been removed. Pancreas: Normal. No ductal dilation. Spleen: The spleen is enlarged measuring 15.7 cm. Adrenal glands: Normal. No mass. Kidneys and ureters: Normal. No hydronephrosis. Stomach and bowel: There is diverticulosis of the colon without evidence of diverticulitis. Appendix: No evidence of appendicitis. Intraperitoneal space: Unremarkable. No free air. No significant fluid collection. Vasculature: Unremarkable. No abdominal aortic aneurysm. Lymph nodes: Unremarkable. No enlarged lymph nodes. Urinary bladder: Unremarkable as visualized. Reproductive: Unremarkable as visualized. Bones/joints: Unremarkable. No acute fracture. Soft tissues: Unremarkable. CT/CT angio chest w abd pel w con IMPRESSION: Cirrhotic liver with associated splenomegaly. Radiation Dose CTDIVOL = (mGy): DLP = 2200.73~2200.73 (mGy-cm)
[2021-05-03] MEDS: dexamethasone 10 mg/mL INJ 6 MG IVP (15:07)
--- NOTE | 2021-05-03 15:07 | CTR_ITS ---
PROCEDURE INFORMATION: Exam: CT Head Without Contrast Exam date and time: 05/03/2021 3:07 PM Age: 55 years old Clinical indication: Coma or unconsciousness; Patient HX: Resp distress -sedated and intubated; Additional info: AMS TECHNIQUE: Imaging protocol: Computed tomography of the head without contrast. Radiation optimization: All CT scans at this facility use at least one of these dose optimization techniques: automated exposure control; mA and/or kV adjustment per patient size (includes targeted exams where dose is matched to clinical indication); or iterative reconstruction. COMPARISON: No relevant prior studies available. RADIATION DOSE METRICS: Total DLP (mGy-cm): 1056.82 FINDINGS: Brain: Prominent cortical sulci more pronounced than expected for age. No hemorrhage. Unremarkable white matter. No mass effect. Cerebral ventricles: Moderate ventriculomegaly. These findings are more pronounced than expected for age Paranasal sinuses: Visualized sinuses are filled with mucus specifically the frontal sinuses the ethmoid sinuses, the sphenoid sinus, and most of the frontal sinuses. These findings are consistent with pansinusitis and likely represent chronic disease. Mastoid air cells: Visualized mastoid air cells are well aerated. Bones/joints: Unremarkable. No acute fracture. Soft tissues: Unremarkable. CT/CT head wo con* [id number] IMPRESSION: No acute intracranial abnormality. Pansinusitis Cerebral atrophy and ventriculomegaly more than expected for age Radiation Dose CTDIVOL = (mGy): DLP = 1056.82 (mGy-cm)
[2021-05-03] MEDS: propofol 10 mg/mL SDV 20 mL 50 MG IVP ×2 (15:10→15:12)
[2021-05-03] MEDS: propofol 1,000 MG/100 ML INJ 19.05 MG IV (15:19)
[2021-05-03] MEDS: pantoprazole 40 mg SDV 80 MG IVP (15:25)
[2021-05-03] MEDS: fentaNYL 50 mcg/mL INJ 2mL 100 MCG IVP (15:29)
[2021-05-03] MEDS: bacitracin ointment Pkt 1 EACH TOPICAL (15:49)
[2021-05-03 16:00] LABS: SARS Covid-2 Antigen Negative (Negative)
--- NOTE | 2021-05-03 16:23 | XRR_ITS ---
PROCEDURE INFORMATION: Exam: XR Chest Exam date and time: 05/03/2021 4:23 PM Age: 55 years old Clinical indication: Device placement; Other: Chest tube; Additional info: Confirm chest tube placement TECHNIQUE: Imaging protocol: XR of the chest. Views: 1 view. COMPARISON: CR (CHEST, ) 05/03/2021 3:26 PM FINDINGS: Tubes, catheters and devices: A chest tube is present in the right lower lobe; Endotracheal tube 8.6 cm above the valentine. NG tube extends into the stomach Lungs: Parenchymal density left perihilar region and left lower lobe. Possible pneumonia; A right lower lobe parenchymal density is seen which may reflect atelectasis Pleural spaces: No pleural effusion. There has been partial re-expansion of right lung pneumothorax. Heart/Mediastinum: Unremarkable. No cardiomegaly. Bones/joints: Unremarkable. XR/XR chest 1V portable [id number] IMPRESSION: 1. Partial re-expansion of right lung pneumothorax 2. Right lower lobe chest tube has been placed 3. Endotracheal tube is above the valentine 4. NG tube is in the stomach 5. Left perihilar and lower lobe parenchymal densities possible pneumonia 6. Right lower lobe atelectasis
[2021-05-03] MEDS: cefepime 1,000 MG in sodium chloride 0.9% (plus) 50 ML 100 MG IV (16:28)
[2021-05-03] MEDS: vancomycin 1,000 MG in sodium chloride 0.9% 250 ML 250 MG IV (16:31)
[2021-05-03] MEDS: remdesivir 200 MG in sodium chloride 0.9% (100 ml) 60 ML 100 MG IV (16:34)
--- NOTE | 2021-05-03 16:53 | XRR_ITS ---
PROCEDURE INFORMATION: Exam: XR Pelvis Exam date and time: 05/03/2021 4:53 PM Age: 55 years old Clinical indication: Device placement; Patient HX: Retro cystogram unable to place catheter; Additional info: Intubated PT TECHNIQUE: Imaging protocol: XR pelvis. Views: 1 view. COMPARISON: MRI Lumbar Spine w/o [id number] 06/04/2019 1:19 PM FINDINGS: Bones/joints: Unremarkable. No acute fracture. Soft tissues: Unremarkable. After retrograde injection of contrast through the urethra a column of liquid contrast is present extending to the pubic symphysis. There are no strictures or filling defects visible. Contrast does not flow into the urinary bladder XR/XR pelvis 1-2V* [id number] IMPRESSION: 1. Retrograde injection of contrast through the urethra does not show evidence of strictures or filling defects within the urethra. 2. Contrast does not flow into the urinary bladder
[2021-05-03] MEDS: sodium chloride 0.9% 1,000 ML 999 ML IV (17:00)
[2021-05-03 17:27] LABS: ABG PCO2 38.8 mmHg (35-45); ABG PH Result 7.39 (7.35-7.45); Base Excess ABG -1.6 mmol/L (-2.0-2.0); Blood Gas Allen Test Pos; Blood Gas Sample Type Arterial; HCO3 ABG 23.2 mmol/L (22-26)
[2021-05-03 17:28] LABS: Blood Gas Operator Identificat MONRO; Blood Gas Sample Site Radial, left; Oxygen Device VENT
[2021-05-03] MEDS: iohexol 300 mg/mL 50 mL Btl XX (17:50)
[2021-05-03] MEDS: haloperidol inj 5 mg/mL INJ 1 mL (18:31)
[2021-05-03] MEDS: potassium chloride premix 100 ML 25 MEQ IV (18:33)
[2021-05-03 18:35] LABS: Troponin 5 2HR 26.54 ng/L (0-15)
[2021-05-03] MEDS: propofol 1,000 MG/100 ML INJ 28.58 MG IV (18:37)
[2021-05-03 19:11] LABS: Troponin 5 2HR Delta 12.54 ABS# (0-10)
[2021-05-03] MEDS: fentaNYL 50 mcg/mL INJ 2mL IVP (19:18)
[2021-05-03] MEDS: vecuronium 10 mg SDV 20 MG IVP (19:20)
--- NOTE | 2021-05-03 19:48 | P.CONIM_ITS ---
Providers/Reason For Consult Consulting Physician/Specialty*: Urology/Smith Reason for Consult*: Critically ill patient with unsuccessful urethral catheterization attempt, gross blood per urethra post attempt Requesting Physician: John ED Primary Care Provider: Jeramy Freitas MD History of Present Illness History of Present Illness Pineda Leone is a 55 year old male who I evaluated for the first time today at the request of the emergency department. He is critically ill and is being prepared to be transferred for presumptive Covid. There were no ICU beds here. He has been intubated. Catheter was attempted to be placed but unsuccessfully so. After the catheter that was attempted to be placed was removed there was grossly bloody discharge from the urethra. The emergency department ordered a retrograde urethrogram that showed no clear extravasation but there was no transit of contrast into the bladder. Per my review it appeared that there was a false passage that was blind-ending. The patient is unable to give any information. I have reviewed his old records and there is no mention of a prior urethral stricture or transurethral surgery. PROCEDURE: Bedside cystoscopy and dilation of urethral stricture. Difficult catheter placement. He was prepped and draped in usual sterile fashion with a full extremity drape. The flexible cystoscope was lubricated and passed into the urethral meatus under direct vision. There was a streaming clot from the proximal urethra. In the bulbar urethra there was a clear false passage. The true lumen was difficult to identify. Eventually a small flap of mucosa was identified and a flexible tip guidewire was manipulated underneath this flap and the wire was then passed and easily presumably into the bladder. A 10 Mal[place]ian straight catheter converted to walker river tip was then passed over the guidewire with good drainage of urine around the wire. This was followed by a 12 [place] straight catheter converted to walker river tip which also was easily passed with drainage. A Amplatz renal dilator set was then utilized sequentially from 12 Maldivian dilators, snake, 14, 15, 16, 18 and 20 Maldivian renal dilator were passed without difficulty but with some resistance in the bulbar urethral area presumptively. The dilators were removed, the snake was removed, and a 16 [place] walker river tip catheter was advanced over the guidewire into the bladder with drainage around the catheter and the balloon inflated. The balloon was then snugged up to the prostate and confirmed to be holding before the guidewire was removed. The guidewire was removed and about 200 to 300 cc of slightly bloody urine was drained. Catheter was placed to dependent drainage and the procedure was completed. He tolerated procedure well without complications. Apparently he is being transferred by ground to a local facility with ICU bed capacity. Recommend leaving the catheter in for an extended period of time to allow passive dilation and healing. If he is in the hospital for an extended period of time I would not remove the catheter without having urology evaluate. Review of Systems General: Reports: ROS unobtainable due to endotracheal tube Meds/Allergies Home Medications and Allergies Home Medications Medication Instructions Recorded Confirmed Last Taken Type albuterol sulfate 2.5 mg INHALATION Q6H 08/26/19 05/03/21 Unknown History ammonium lactate 12 % topical cream 1 applic TOPICAL BID 08/26/19 05/03/21 Unknown History citalopram 40 mg tablet 40 mg PO DAILY #90 tab 02/16/21 05/03/21 Unknown Rx metoprolol tartrate 50 mg tablet 50 mg PO BID #180 tab 02/16/21 05/03/21 Unknown Rx nitroglycerin 0.4 mg sublingual 0.4 mg SUBLINGUAL Q5M PRN #30 tab 02/16/21 05/03/21 Unknown Rx tablet meloxicam 15 mg tablet 15 mg PO DAILY 30 Days #30 tab 04/07/21 05/03/21 Unknown Rx hydrocodone 10 mg-acetaminophen 1 tab PO Q8H PRN 30 Days #66 tab 04/14/21 05/03/21 Unknown Rx 325 mg tablet metformin 500 mg tablet 500 mg PO BID #180 tab 04/20/21 05/03/21 Unknown Rx Ambien 10 mg PO BEDTIME 05/03/21 05/03/21 Unknown History ProAir HFA 3 puff INHALATION Q4H PRN 05/03/21 05/03/21 Unknown History cyclobenzaprine 10 mg PO BEDTIME 05/03/21 05/03/21 Unknown History famotidine 20 mg PO BID 05/03/21 05/03/21 Unknown History lisinopril 20 mg PO DAILY 05/03/21 05/03/21 Unknown History rivaroxaban [Xarelto] 20 mg PO DAILY 05/03/21 05/03/21 Unknown History Allergies Allergy/AdvReac Type Severity Reaction Status Date / Time gabapentin Allergy Unknown unverified Verified 02/16/21 14:11 carbamazepine Allergy Unknown Verified 02/16/21 14:11 oxcarbazepine Allergy Unknown Verified 02/16/21 14:11 [From Trileptal] pregabalin [From Lyrica] Allergy Unknown Verified 02/16/21 14:11 topiramate Allergy Unknown Verified 02/16/21 14:11 Current Medications Current Medications Generic Name Dose Route Start Last Admin Trade Name Freq PRN Reason Stop Dose Admin Nitroglycerin/Dextrose 50 mg in 250 mls @ 0 mls/hr 05/03/21 13:00 05/03/21 18:34 Nitroglycerin Drip IV Infused .Q0M RADHA Titration Protocol Per Protocol Fentanyl 1,000 mcg/ Sodium 100 mls @ 0 mls/hr 05/03/21 15:00 05/03/21 15:37 Chloride IV 50 mcg/hr .Q0M RADHA 5 mls/hr Administration Protocol Per Protocol Potassium Chloride 100 mls @ 25 mls/hr 05/03/21 16:44 05/03/21 18:33 K-Vikas IV 05/03/21 20:43 25 mls/hr ONCE ONE Administration PFSH Acute PFSH: Medical History Chronic atrial fibrillation Chronic back pain Diabetes Morbid (severe) obesity due to excess calories Strain of knee and leg, left Urethral stricture Family History Unknown Depression Diabetes Father Hypertension Heart disease Social History Smoking and tobacco status: former smoker Alcohol intake: current Alcohol intake frequency: holidays/special occasions only Alcohol type: wine Household members: spouse Marital status: Current occupational status: disabled History of recent travel: No Vitals/I&O/Wt Last Vital Signs Temp 98.4 F 05/03/21 12:47 Pulse 140 H 05/03/21 18:40 Resp 20 H 05/03/21 18:40 BP 169/113 05/03/21 18:25 Pulse Ox 96 05/03/21 18:40 05/03/21 05/03/21 05/03/21 06:59 14:59 22:59 Intake Total 500.6 / 500.6 1709.400 / 2210.000 Balance 500.6 / 500.6 1709.400 / 2210.000 Weight last 48 hrs Weight 350 lb Physical Exam Narrative: EXAM NARRATIVE: Patient is intubated and sedated and paralyzed. Abdomen is soft. There is no obvious distention. He is morbidly obese so it is hard to tell. I could not for sure palpate his bladder. Respirations are controlled by the ventilator. Has a chest tube in place. No palpable lymphadenopathy. He is tachycardic. Possible atrial fibrillation Neurologic unassessable due to paralysis on ventilator Genitourinary normal phallus with urethral meatus. Circumcised. Data Micro: Micro: Microbiology 05/03/21 18:00 Blood Culture - Pr eliminary Blood SPECIMEN [facility] 05/03/21 18:05 Blood Culture - Pr eliminary Blood SPECIMEN [facility] A&P Assessment and plan (1) Urethral stricture: Recommend leaving the catheter in for least a week for healing of the false passage and for passive dilation of the urethral stricture. It would probably be lopez to leave it in at discharge if that is not an extended period in the hospital. If he is going to be an extended period in the hospital would be worthwhile having urology evaluate him before catheter was removed. There should be no haste in removing the catheter for the usual reasons. 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
[2021-05-03] MEDS: propofol 1,000 MG/100 ML INJ 38.1 MG IV (21:47)
[2021-05-03] MEDS: vecuronium 10 mg SDV IVP (22:20)
[2021-05-06 07:52] LABS: Quest SARS-CoV-2 RNA DETECTED (NOT DETECTED)
== END 2021-05-03 22:40 | disposition admitted as inpatient to this hospital (09) ==
PROVIDERS: Emergency Provider Emergency Medicine; PCP Family Medicine
DX: I48.20 Chronic atrial fibrillation, unspecified (principal); I16.1 Hypertensive emergency; R09.02 Hypoxemia; R41.82 Altered mental status, unspecified; J93.9 Pneumothorax, unspecified; E87.2 Acidosis; U07.1 COVID-19
CPT/HCPCS: 31500; 32551; 36556; 36600; 70450; 71045; 71275; 72170; 74177; 80053; 82803; 83605; 83690; 83880; 84484; 85025; 85378; 85610; 85730; 87040; 87070; 87205; 87426; 87635; 93005; 94660; 94799; 96365; 96367; 96368; 96372; 96375; 99291; 99292; C1751; C9113; J0330; J0692; J1100; J1630; J2060; J2704; J3010; J3370; J3480; J3490; J7030; J7040; J7050; Q9967